=== PATIENT | male | born 1995 | race Caucasian/White ===

== ENCOUNTER 2022-01-13 21:47 | Inpatient (IN) | payer BC, SELFPAY ==
[2022-01-13 22:08] VITALS: BP 145/83; PULSE 114; RESP 18; TEMP 36.2; O2SAT 97; BMI 31.1
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
--- NOTE | 2022-01-13 22:29 | ECG_ITS ---
Test Reason : med clear Blood Pressure : / mmHG Vent. Rate : 084 BPM Atrial Rate : 084 BPM P-R Int : 160 ms QRS Dur : 086 ms QT Int : 362 ms P-R-T Axes : 045 015 037 degrees QTc Int : 427 ms Normal sinus rhythm Normal ECG No previous ECGs available Referred By: Sapna Barrett Electronically Signed By:SHANKAR CATHERINE MD
[2022-01-13 23:05] LABS: MANUAL DIFF FLAG NO
[2022-01-13 23:08] LABS: Basophils Absolute Auto 0.1 X10*3/uL (0.0-0.2); Basophils Percent Auto 0.4 % (0-2); Eosinophils Absolute Auto 0.1 X10*3/uL (0.0-0.4); Eosinophils Percent Auto 0.6 % (0-4); Hematocrit 40.1 % (42.0-52.0); Hemoglobin 14.5 g/dl (14.0-18.0); Imm Gran Abs Auto 0.04 X10*3/uL (0.00-0.03); Imm Gran Pct Auto 0.4 % (0.0-0.4); Lymphocytes Absolute Auto 3.5 X10*3/uL (1.2-4.9); Mean Corpuscular HGB Conc 36.2 g/dl (31.0-36.0); Mean Corpuscular Volume 88.5 fL (80.0-98.0); Mean Platelet Volume 9.2 fL (9.4-12.4); Monocytes Absolute Auto 0.7 X10*3/uL (0.1-1.2); Monocytes Percent Auto 5.8 % (2-11); Neutrophils Percent Auto 61.8 % (45-73); Platelet Count 307 X10*3/uL (160-400); Red Blood Count 4.53 X10*6/uL (4.60-5.80); Red Cell Distribution Width 11.6 % (11.0-16.0); White Blood Count 11.3 X10*3/uL (4.8-10.8)
[2022-01-13 23:09] LABS: Appearance Urine CLEAR; Color Urine YELLOW; Glucose Urine UA NEG (NEG); Leukocyte Esterase Urine NEG (NEG); Nitrite Urine NEG (NEG); Specific Gravity - Urine >= 1.030 (1.005-1.025); Urine Blood TRACE (NEG); Urine Ketones NEG (NEG); Urine Protein NEG (NEG-TRACE)
[2022-01-13 23:21] LABS: Alanine Aminotransferase 26 U/L (0-40); Albumin Level 4.3 g/dL (3.5-5.0); Alkaline Phosphatase 72 U/L (39-117); Anion Gap 11 (12-20); Aspartate Amino Transferase 15 U/L (5-37); Bilirubin Direct 0.2 mg/dL (0.0-0.5); Bilirubin Total 0.5 mg/dL (0.0-1.0); Blood Urea Nitrogen 10 mg/dL (9-16); Calcium 9.6 mg/dL (8.4-10.2); Carbon Dioxide 26 mmol/L (22-29); Chloride 106 mmol/L (96-108); Estimated Glomerular Filt Rate > 60; Glucose Random 99 mg/dL (60-115); Lipase 11 U/L (8-78); Potassium 4.1 mmol/L (3.3-5.1); Sodium 139 mmol/L (135-145); Total Protein 7.3 g/dL (6.5-8.0)
[2022-01-13 23:22] LABS: Bacteria Urine TRACE /LPF; RBC Urine 0-2 /HPF (0); Squamous Epithelial Cell Urine 1+ /LPF; WBC Urine 0-2 /HPF (0-4)
[2022-01-13 23:24] LABS: Amphetamine Screen Urine Not Detected (Not Detect); Barbiturates, Urine Not Detected (Not Detect); Benzodiazepines Screen Urine Not Detected (Not Detect); Cannabinoid Screen Urine POSITIVE (Not Detect); Cocaine Screen Urine Not Detected (Not Detect); Fentanyl, urine Not Detected (Not Detect); Opiate Screen Urine Not Detected (Not Detect); Phencyclidine Screen Urine Not Detected (Not Detect)
[2022-01-13 23:39] LABS: COVID-19 Test Negative (Negative)
[2022-01-13 23:58] VITALS: BP 109/61; PULSE 81; RESP 16; TEMP 36.7; O2SAT 97
[2022-01-14 00:07] LABS: Ethanol < 10 mg/dL
[2022-01-14] MEDS: hydrOXYzine HCL 25 MG TABLET PO ×2 (00:36→20:25)
--- NOTE | 2022-01-14 05:59 | PC.NURSE ---
Patient slept through the night, no distress observed/reported, behavior calm and quiet, mood depressed, medication compliant, disposition per care team voluntary bed search, VSS, will continue to monitor,
[2022-01-14 06:00] VITALS: BP 107/63; PULSE 93; RESP 18; TEMP 36.3; O2SAT 95
--- NOTE | 2022-01-14 07:13 | PC.NURSE ---
patient appears to remain asleep at present respirations are even and unlabored, patient appears in no distress
[2022-01-14] MEDS: Venlafaxine HCl ER 37.5 MG CAP.ER.24H PO (10:15)
[2022-01-14] MEDS: Venlafaxine HCl ER 150 MG CAP.ER.24H PO (10:15)
--- NOTE | 2022-01-14 17:08 | PC.ADMIT ---
PT admitted to unit from [facility] [place] [facility] ED on a conditional voluntary with a diagnosis of major depressive disorder and social anxiety disorder. PT is a transgender male-female, uses she/her pronouns. She reports that she came to the hospital because she was having thoughts of self-harm, she reports that she wanted to and is having thoughts of but has no plan or intention of acting on those thoughts. She reports that she has had sleep disturbances, poor appetite and poor self-care as her depression has increased. Pt was calm and cooperative during admission, soft spoken and avoided eye contact. Pt denies SI at this time and is help seeking. She reports that she has been trying to get a psychiatrist but has been unable. PT reports a history of self-injurious behavior by rubbing her knuckles on hard surfaces until they bled. This is pt's first inpatient experience. Her tox screen was positive for THC, she reports that she uses marijuana to help her sleep. Pt denies other substances and alcohol use. PT is covid negative. 15 minute checks iniated for safety.
[2022-01-14 17:41] VITALS: BMI 31.8
[2022-01-14 17:43] VITALS: BP 107/63; PULSE 93; RESP 18; TEMP 36.3; O2SAT 95
[2022-01-14 19:50] VITALS: BP 98/53; PULSE 94; RESP 18; TEMP 36.5; O2SAT 97
[2022-01-15 07:00] VITALS: BMI 31.9
[2022-01-15 09:00] VITALS: BP 113/68; PULSE 86; RESP 18; TEMP 36.2; O2SAT 94
[2022-01-15 09:04] LABS: Estimated Average Glucose 88 mg/dL; Hemoglobin A1c % 4.7 %
[2022-01-15] MEDS: Venlafaxine HCl ER 150 MG CAP.ER.24H PO (09:16)
[2022-01-15] MEDS: Venlafaxine HCl ER 37.5 MG CAP.ER.24H PO (09:16)
[2022-01-15 10:20] LABS: Alanine Aminotransferase 21 U/L (0-40); Alkaline Phosphatase 68 U/L (39-117); Anion Gap 11 (12-20); Aspartate Amino Transferase 16 U/L (5-37); Bilirubin Total 0.7 mg/dL (0.0-1.0); Blood Urea Nitrogen 14 mg/dL (9-16); Carbon Dioxide 27 mmol/L (22-29); Chloride 104 mmol/L (96-108); Cholesterol 161 mg/dL; Creatinine Clr Calc Pharmacy 186.6; Estimated Glomerular Filt Rate > 60; Glucose Fasting 90 mg/dL (60-99); HDL Cholesterol 31 mg/dL; LDL Cholesterol Calculated 89 mg/dl; Potassium 4.4 mmol/L (3.3-5.1); Sodium 138 mmol/L (135-145); Total Protein 6.6 g/dL (6.5-8.0); Triglycerides 207 mg/dL
[2022-01-15 10:24] LABS: Thyroid Stimulating Hormone 1.21 uIU/mL (0.32-4.0)
[2022-01-15 10:39] LABS: Folate 6.2 ng/mL (> or = 4.0); Vitamin B12 1001 pg/mL (200-900)
--- NOTE | 2022-01-15 14:38 | PC.NURSE ---
Patient tearful after visiting w/ father and mother. Reports feeling 'useless,' and that she doesn't feel anyone fully understands her situation. Patient declined offer of hydroxyzine for anxiety. Encouraged patient not to isolate herself in her room- patient reports being very afraid of rejection and of how other people perceive her.
--- NOTE | 2022-01-15 14:56 | P.HPPS_ITS ---
HPI Date of Service: 01/15/22 Chief Complaint: SI HPI Narrative: pt reports that one month ago she violated her sister's trust by telling her mother something her sister had said while pt and her other were arguing. she reports that she and her mother have since made amends, but her sister has not forgiven her. complicating the situation, her sister is getting this weekend. she has only been transitioning (male to female) for the past month or so and this would be her first major social event as a woman. she is very concerned about how she will be received. pt has been feeling self-conscious due to her living with he rmother at age 26 and not being employed. she rec ently applied for a job and did not get the position, which she feels overly crushed her sense of self-esteem. 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 she does agree with the therapist's assessment, however. she described chronic feelings of inadequacy, ruminativeness. one night recently her mother told her she needed to do her laundry and shower, after which she got very upset. she disclosed feelings of wanting to harm herself and her mother brought her to the ED. on interview with MD, pt reviews the above Hx, which is c/w CARE team eval. pt is agreeable to increase her effexor XR from 187.5 mg daily to 225 mg daily. pt is not sure how we can help her in the hospital. on being asked the three most important issues she would like to change, as targets for us to work on, she identified her tendency to not do things merely because she is unfamiliar with them, her tendency to self-isolate, and her ambivalence about making changes in her life. she was informed that those sorts of goals are best addressed in the outpatient treatment setting. she did identify insomnia as a problem and was educated re the use of trazodone for sleep. pt interested in a new therapist, informed referral can be made at discharge. encouraged to attend groups to learn coping skills and relaxation exercises such as meditation. Past Psychiatric History: h/o SIB of scraping knuckles along cement perla while in HS; no such behavior for years. no h/o SA. no h/o psychiatric hospitalization. individual therapy since 18 yo, PHP several years ago. Medical Evaluation Reviewed: Yes [facility], [facility] Family History: i don't know Social History: parents , has one older sister. unemployed, living with mother. severely bullied during childhood. Substance History: cannabis only Trauma History: denies Diagnostics Vital Signs (24Hr): Vital Signs - 24 hr 01/14/22 17:43 01/14/22 19:50 01/15/22 09:00 Temperature 97.4 F 97.7 F 97.1 F Pulse Rate 93 94 86 Respiratory Rate 18 18 18 Blood Pressure 107/63 98/53 L 113/68 Pulse Oximetry 95 97 94 BMI result Body Mass Index 31.8 Labs Results: 01/13/22 22:57 01/15/22 08:18 Labs: Laboratory Results - last 48 hr 01/13/22 01/13/22 01/13/22 22:53 22:53 22:57 WBC RBC Hgb Hct MCV MCH MCHC RDW Plt Count MPV Immature Gran % (Auto) Neut % (Auto) Lymph % (Auto) [place] % (Auto) Eos % (Auto) Baso % (Auto) Lymph # (Auto) [place] # (Auto) Eos # (Auto) Baso # (Auto) Abs Immat Gran (auto) Absolute Neuts (auto) Absolute Nucleated RBC Nucleated RBC % (auto) Sodium Potassium Chloride Carbon Dioxide Anion Gap BUN Creatinine Estim Creat Clear Calc Estimated GFR Random Glucose Fasting Glucose Estimat Average Glucose Hemoglobin A1c % Calcium Total Bilirubin Direct Bilirubin AST ALT Alkaline Phosphatase Total Protein Albumin Triglycerides Cholesterol LDL Cholesterol, Calc HDL Cholesterol Lipase Vitamin B12 Folate TSH Free T4 Urine Color YELLOW Urine Appearance CLEAR Urine pH 6.0 Ur Specific [place] >= 1.030 H Urine Protein NEG Urine Glucose (UA) NEG Urine Ketones NEG Urine Blood TRACE Urine Nitrite NEG Ur Leukocyte Esterase NEG Urine RBC 0-2 Urine WBC 0-2 Ur Squamous Epith Cells 1+ Urine Bacteria TRACE Urine Opiates Screen Not Detected Urine Fentanyl Screen Not Detected Ur Barbiturates Screen Not Detected Ur Phencyclidine Scrn Not Detected Ur Amphetamines Screen Not Detected U Benzodiazepines Scrn Not Detected Urine Cocaine Screen Not Detected U Marijuana (THC) Screen POSITIVE H Ethyl Alcohol COVID-19 (AVI) Negative COVID-19 Clin Com See Note 01/13/22 01/13/22 01/13/22 22:57 22:57 22:57 WBC 11.3 H RBC 4.53 L Hgb 14.5 Hct 40.1 L MCV 88.5 MCH 32.0 MCHC 36.2 H RDW 11.6 Plt Count 307 MPV 9.2 L Immature Gran % (Auto) 0.4 Neut % (Auto) 61.8 Lymph % (Auto) 31.0 [place] % (Auto) 5.8 Eos % (Auto) 0.6 Baso % (Auto) 0.4 Lymph # (Auto) 3.5 [place] # (Auto) 0.7 Eos # (Auto) 0.1 Baso # (Auto) 0.1 Abs Immat Gran (auto) 0.04 H Absolute Neuts (auto) 7.0 Absolute Nucleated RBC 0.000 Nucleated RBC % (auto) 0.0 Sodium 139 Potassium 4.1 Chloride 106 Carbon Dioxide 26 Anion Gap 11 L BUN 10 Creatinine 0.79 Estim Creat Clear Calc 180.0 Estimated GFR > 60 Random Glucose 99 Fasting Glucose Estimat Average Glucose Hemoglobin A1c % Calcium 9.6 Total Bilirubin 0.5 Direct Bilirubin 0.2 AST 15 ALT 26 Alkaline Phosphatase 72 Total Protein 7.3 Albumin 4.3 Triglycerides Cholesterol LDL Cholesterol, Calc HDL Cholesterol Lipase 11 Vitamin B12 Folate TSH Free T4 Urine Color Urine Appearance Urine pH Ur Specific [place] Urine Protein Urine Glucose (UA) Urine Ketones Urine Blood Urine Nitrite Ur Leukocyte Esterase Urine RBC Urine WBC Ur Squamous Epith Cells Urine Bacteria Urine Opiates Screen Urine Fentanyl Screen Ur Barbiturates Screen Ur Phencyclidine Scrn Ur Amphetamines Screen U Benzodiazepines Scrn Urine Cocaine Screen U Marijuana (THC) Screen Ethyl Alcohol < 10 COVID-19 (AVI) COVID-19 Clin Com 01/15/22 01/15/22 01/15/22 08:18 08:18 08:18 WBC RBC Hgb Hct MCV MCH MCHC RDW Plt Count MPV Immature Gran % (Auto) Neut % (Auto) Lymph % (Auto) [place] % (Auto) Eos % (Auto) Baso % (Auto) Lymph # (Auto) [place] # (Auto) Eos # (Auto) Baso # (Auto) Abs Immat Gran (auto) Absolute Neuts (auto) Absolute Nucleated RBC Nucleated RBC % (auto) Sodium 138 Potassium 4.4 Chloride 104 Carbon Dioxide 27 Anion Gap 11 L BUN 14 Creatinine 0.77 Estim Creat Clear Calc 186.6 Estimated GFR > 60 Random Glucose Fasting Glucose 90 Estimat Average Glucose 88 Hemoglobin A1c % 4.7 Calcium 9.0 D Total Bilirubin 0.7 Direct Bilirubin AST 16 ALT 21 Alkaline Phosphatase 68 Total Protein 6.6 Albumin 4.0 Triglycerides 207 Cholesterol 161 LDL Cholesterol, Calc 89 HDL Cholesterol 31 Lipase Vitamin B12 1001 H Folate 6.2 TSH 1.21 Free T4 0.90 Urine Color Urine Appearance Urine pH Ur Specific [place] Urine Protein Urine Glucose (UA) Urine Ketones Urine Blood Urine Nitrite Ur Leukocyte Esterase Urine RBC Urine WBC Ur Squamous Epith Cells Urine Bacteria Urine Opiates Screen Urine Fentanyl Screen Ur Barbiturates Screen Ur Phencyclidine Scrn Ur Amphetamines Screen U Benzodiazepines Scrn Urine Cocaine Screen U Marijuana (THC) Screen Ethyl Alcohol COVID-19 (AVI) COVID-19 Clin Com Meds/Allergies Meds Home Medications Acetaminophen (Acetaminophen 325 Mg Tablet) 650 mg PO Q6H PRN PRN Reason: Headache/Pain Mild Scale (1-3) Al Hydroxide/Mg Hydroxide (Magnesium Hydrox/Alum Hydrox 30 Ml Oral.Susp) 30 ml PO Q6H PRN PRN Reason: Heartburn/Nausea Hydroxyzine HCl (Hydroxyzine Hcl 25 Mg Tablet) 25 mg PO BEDTIME DENYS Last Admin: 01/14/22 20:25 Dose: 25 mg Documented by: Hydroxyzine HCl (Hydroxyzine Hcl 25 Mg Tablet) 25 mg PO Q4H PRN PRN Reason: Anxiety Magnesium Hydroxide (Milk Of Magnesia 30 Ml Oral.Susp) 30 ml PO DAILY PRN PRN Reason: Constipation Patient Own Med ( Methylphenidate 36 Mg Er) 1 each PO DAILY [facility] Trazodone HCl (Trazodone Hcl 50 Mg Tablet) 50 mg PO BEDTIME PRN PRN Reason: Insomnia Venlafaxine HCl (Venlafaxine Hcl Er 75 Mg Cap.Er.24h) 225 mg PO DAILY [facility] Allergies Allergies Allergy/AdvReac Type Severity Reaction Status Date / Time No Known Allergies Allergy Unverified 07/25/20 18:35 Mental Status Exam Mental Status Exam Narrative: dressed in street clothes, disheveled/unkempt. cooperative with interview. no PMA/PMR. very poor eye contact. speech with affected feminine lilt. nml amount, rate, tone, latency. thoughts linear and logical. affect constricted, tearful at points. mood bad. denies SI/SIBI/HI/AVH. Assessment & Plan Assessment & Plan (1) Depression: Status: Acute Code(s): F32.A - Depression, unspecified Plan increase effexor XR from 187.5 mg daily to 225 mg daily. groups for support and skills. observe for safety. pt interested in a new therapist; referral at discharge. Patient educated on: medication risk/benefits Reason for continued inpatient stay Substantial Risk for: harm to self, inability to function and rapid decompensat ion
[2022-01-15 20:15] VITALS: BP 123/77; PULSE 110; RESP 20; O2SAT 96
[2022-01-15] MEDS: hydrOXYzine HCL 25 MG TABLET PO (20:54)
[2022-01-15] MEDS: traZODone HCL 50 MG TABLET PO (21:03)
[2022-01-16] MEDS: Venlafaxine HCl ER 75 MG CAP.ER.24H 225 MG PO (09:16)
[2022-01-16 09:19] VITALS: BP 94/53; PULSE 82; RESP 18; TEMP 36.4; O2SAT 95
--- NOTE | 2022-01-16 13:08 | HO.PSYCHPN ---
Subjective Subjective Date of Service: 01/16/22 Reason For Visit: SI Interim History: pt found sleeping in her room late morning. rousable to loud voice. states she did not sleep well last night. spoke with her parents yesterday, which she reports only made her feel worse. she feels as if she is letting them down by missing the wedding this weekend. she has been having the thought, if i were a better adult, i wouldn't need to be here. she reports her father brought her a card from her sister. the sister's message was that she was not mad at pt, but she also didn't say i love you to pt or apologize for recent poor interactions. she feels she should just excise her sister from her life at this point. no other complaints or requests. med change reviewed, weekend schedule reviewed. pt informs MD of her plan to discharge wednesday, as that is when her three-day notice matures. no other complaints or requests. per staff, pt tearful and isolative yesterday. trazodone was helpful for sleep last night. depressed and anxious, sad to be missing her sister's wedding this weekend. afraid of going to groups. not attending groups. perseverating on mtg with family. appeared to have slept well last night. Mental Status Exam Mental Status Exam Narrative: dressed in street clothes, disheveled/unkempt. cooperative with interview. no PMA/PMR. no eye contact. speech with affected feminine lilt. nml amount, rate, tone, latency. thoughts linear and logical. affect constricted, normo-intense, non-labile. mood depressed and anxious. no SI/SIBI/HI/AVH expressed. Diagnostics Vital Signs (24Hr): Vital Signs - 24 hr 01/15/22 20:15 01/16/22 09:19 Temperature 97.6 F Pulse Rate 110 H 82 Respiratory Rate 20 18 Blood Pressure 123/77 94/53 L Pulse Oximetry 96 95 BMI result Body Mass Index 31.9 Labs Results: 01/13/22 22:57 01/15/22 08:18 Labs: Laboratory Results - last 48 hr 01/15/22 01/15/22 01/15/22 08:18 08:18 08:18 Sodium 138 Potassium 4.4 Chloride 104 Carbon Dioxide 27 Anion Gap 11 L BUN 14 Creatinine 0.77 Estim Creat Clear Calc 186.6 Estimated GFR > 60 Fasting Glucose 90 Estimat Average Glucose 88 Hemoglobin A1c % 4.7 Calcium 9.0 D Total Bilirubin 0.7 AST 16 ALT 21 Alkaline Phosphatase 68 Total Protein 6.6 Albumin 4.0 Triglycerides 207 Cholesterol 161 LDL Cholesterol, Calc 89 HDL Cholesterol 31 Vitamin B12 1001 H Folate 6.2 TSH 1.21 Free T4 0.90 Medications Medications Current Medications Acetaminophen (Acetaminophen 325 Mg Tablet) 650 mg PO Q6H PRN PRN Reason: Headache/Pain Mild Scale (1-3) Al Hydroxide/Mg Hydroxide (Magnesium Hydrox/Alum Hydrox 30 Ml Oral.Susp) 30 ml PO Q6H PRN PRN Reason: Heartburn/Nausea Hydroxyzine HCl (Hydroxyzine Hcl 25 Mg Tablet) 25 mg PO BEDTIME [facility] Last Admin: 01/15/22 20:54 Dose: 25 mg Documented by: Hydroxyzine HCl (Hydroxyzine Hcl 25 Mg Tablet) 25 mg PO Q4H PRN PRN Reason: Anxiety Magnesium Hydroxide (Milk Of Magnesia 30 Ml Oral.Susp) 30 ml PO DAILY PRN PRN Reason: Constipation Patient Own Med ( Methylphenidate 36 Mg Er) 1 each PO DAILY [facility] Last Admin: 01/16/22 09:16 Dose: 1 each Documented by: Trazodone HCl (Trazodone Hcl 50 Mg Tablet) 50 mg PO BEDTIME PRN PRN Reason: Insomnia Last Admin: 01/15/22 21:03 Dose: 50 mg Documented by: Venlafaxine HCl (Venlafaxine Hcl Er 75 Mg Cap.Er.24h) 225 mg PO DAILY [facility] Last Admin: 01/16/22 09:16 Dose: 225 mg Documented by: Allergies Allergies Allergy/AdvReac Type Severity Reaction Status Date / Time No Known Allergies Allergy Unverified 07/25/20 18:35 Assessment & Plan Assessment & Plan (1) Depression: Status: Acute Code(s): F32.A - Depression, unspecified Plan increased effexor XR from 187.5 mg daily to 225 mg daily. groups for support and skills. observe for safety. pt interested in a new therapist; referral at discharge. planning for wednesday DC. I spent ___25___ minutes with the patient and/or on the patient floor today, greater than?50% of which was spent counseling/coordinating care. Reason for contiued inpatient stay Substantial Risk for: harm to self, inability to function and rapid decompensation
[2022-01-16] MEDS: traZODone HCL 50 MG TABLET PO (21:56)
[2022-01-16] MEDS: hydrOXYzine HCL 25 MG TABLET PO (21:57)
[2022-01-16 21:59] VITALS: BP 107/73; PULSE 105; TEMP 36.3; O2SAT 98
[2022-01-17] MEDS: Venlafaxine HCl ER 75 MG CAP.ER.24H 225 MG PO (09:24)
[2022-01-17 09:40] VITALS: BP 91/50; PULSE 85; RESP 18; TEMP 36.1; O2SAT 96
--- NOTE | 2022-01-17 09:50 | P.PNPSI_ITS ---
Subjective Subjective Date of Service: 01/17/22 Reason For Visit: SI Subjective Notes: 3 Day Medical Problems Affecting Mental Status: No Interim History: pt sitting in common room, easily engaged, soft spoken, states she still not sleeping well, Pt reports sad, no other complaints or requests. Would like to discharge Wednesday. Feels she can work through issues with therapist. says she needs an outpatient psychiatrist for evaluation of personality disorder. med change reviewed, weekend schedule reviewed. not attending groups. Medication Compliance: Yes Side effects from medications: No Attending Groups: No Review of Systems Acute medical concerns: No Review of Systems Review of Systems Constitutional: No Fever, No Chills ENT/Mouth: No Ear Pain, No Nasal Congestion, No sore throat Eyes: No Eye Pain, No Swelling, No Redness Cardiovascular: No Chest Pain, No SOB Respiratory: No Cough, No Sputum, No Dyspnea Gastrointestinal: No Nausea, No Vomiting, No Diarrhea, No Hematochezia, No Melena Genitourinary: No Dysuria, No Urinary Frequency, No Hematuria Musculoskeletal: No Myalgias Skin: No Skin Lesions, No rash Neuro: No Weakness, No Numbness, No Paresthesias, No Dizziness, No Headache Psych: positive Anxiety, positive Depression, positive SI Heme/Lymph: No Lymphadenopathy Endocrine: No Polyuria, No Polydipsia Yes all other systems are reviewed and are negative Mental Status Exam Mental Status Exam Narrative: dressed in street clothes, disheveled/unkempt. cooperative with interview. no eye contact. speech with affected feminine lilt. nml amount, rate, tone, latency. thoughts linear and logical. affect constricted, normo-intense, non- labile. mood sad and anxious. no SI/SIBI/HI/AVH expressed. Diagnostics Vital Signs (24Hr): Vital Signs - 24 hr 01/16/22 21:59 01/17/22 09:40 Temperature 97.3 F 97 F Pulse Rate 105 H 85 Respiratory Rate 18 Blood Pressure 107/73 91/50 L Pulse Oximetry 98 96 BMI result Body Mass Index 31.9 Labs Results: 01/13/22 22:57 01/15/22 08:18 Labs: Laboratory Results - last 48 hr 01/15/22 01/15/22 08:18 08:18 Sodium 138 Potassium 4.4 Chloride 104 Carbon Dioxide 27 Anion Gap 11 L BUN 14 Creatinine 0.77 Estim Creat Clear Calc 186.6 Estimated GFR > 60 Fasting Glucose 90 Calcium 9.0 D Total Bilirubin 0.7 AST 16 ALT 21 Alkaline Phosphatase 68 Total Protein 6.6 Albumin 4.0 Triglycerides 207 Cholesterol 161 LDL Cholesterol, Calc 89 HDL Cholesterol 31 Vitamin B12 1001 H Folate 6.2 TSH 1.21 Free T4 0.90 Medications Medications Current Medications Acetaminophen (Acetaminophen 325 Mg Tablet) 650 mg PO Q6H PRN PRN Reason: Headache/Pain Mild Scale (1-3) Al Hydroxide/Mg Hydroxide (Magnesium Hydrox/Alum Hydrox 30 Ml Oral.Susp) 30 ml PO Q6H PRN PRN Reason: Heartburn/Nausea Hydroxyzine HCl (Hydroxyzine Hcl 25 Mg Tablet) 25 mg PO BEDTIME [facility] Last Admin: 01/16/22 21:57 Dose: 25 mg Documented by: Hydroxyzine HCl (Hydroxyzine Hcl 25 Mg Tablet) 25 mg PO Q4H PRN PRN Reason: Anxiety Magnesium Hydroxide (Milk Of Magnesia 30 Ml Oral.Susp) 30 ml PO DAILY PRN PRN Reason: Constipation Patient Own Med ( Methylphenidate 36 Mg Er) 1 each PO DAILY [facility] Last Admin: 01/17/22 09:24 Dose: 1 each Documented by: Trazodone HCl (Trazodone Hcl 50 Mg Tablet) 50 mg PO BEDTIME PRN PRN Reason: Insomnia Last Admin: 01/16/22 21:56 Dose: 50 mg Documented by: Venlafaxine HCl (Venlafaxine Hcl Er 75 Mg Cap.Er.24h) 225 mg PO DAILY [facility] Last Admin: 01/17/22 09:24 Dose: 225 mg Documented by: Allergies Allergies Allergy/AdvReac Type Severity Reaction Status Date / Time No Known Allergies Allergy Unverified 07/25/20 18:35 Assessment & Plan Assessment & Plan (1) Depression: Status: Acute Code(s): F32.A - Depression, unspecified Plan increased effexor XR from 187.5 mg daily to 225 mg daily. groups for support and skills. observe for safety. pt interested in a new therapist; referral at discharge. planning for wednesday DC. I spent ___15___ minutes with the patient and/or on the patient floor today, greater than?50% of which was spent counseling/coordinating care. Patient educated on: diagnosis, medication risk/benefits and therapeutic strategies Informed Consent: further education needed Reason for contiued inpatient stay Substantial Risk for: harm to self and inability to function
[2022-01-17 21:02] VITALS: BP 118/65; PULSE 106; TEMP 36.6; O2SAT 96
[2022-01-17] MEDS: hydrOXYzine HCL 25 MG TABLET PO (21:05)
[2022-01-17] MEDS: traZODone HCL 50 MG TABLET PO (21:05)
[2022-01-18 06:00] VITALS: BP 93/57; PULSE 82; RESP 16; TEMP 36.6; O2SAT 96
[2022-01-18] MEDS: Venlafaxine HCl ER 75 MG CAP.ER.24H 225 MG PO (08:52)
--- NOTE | 2022-01-18 10:45 | P.PNPSI_ITS ---
Subjective Subjective Date of Service: 01/18/22 Reason For Visit: SI Subjective Notes: 3 Day Interim History: pt presenting depressed, not attending to ADLs. low energy, sad, no SI or HI Medication Compliance: Yes Side effects from medications: No Attending Groups: No Review of Systems Acute medical concerns: No Medical Review of Systems: unchanged Review of Systems Review of Systems Constitutional: No Fever, No Chills ENT/Mouth: No Ear Pain, No Nasal Congestion, No sore throat Eyes: No Eye Pain, No Swelling, No Redness Cardiovascular: No Chest Pain, No SOB Respiratory: No Cough, No Sputum, No Dyspnea Gastrointestinal: No Nausea, No Vomiting, No Diarrhea, No Hematochezia, No Melena Genitourinary: No Dysuria, No Urinary Frequency, No Hematuria Musculoskeletal: No Myalgias Skin: No Skin Lesions, No rash Neuro: No Weakness, No Numbness, No Paresthesias, No Dizziness, No Headache Psych: positive Anxiety, positive Depression, positive SI Heme/Lymph: No Lymphadenopathy Endocrine: No Polyuria, No Polydipsia Yes all other systems are reviewed and are negative Mental Status Exam Mental Status Exam Narrative: dressed in street clothes, disheveled/unkempt. cooperative with interview. no eye contact. speech nml amount, rate, tone, latency. thoughts linear and logical. affect constricted, normo-intense, non-labile. mood sad and anxious. no SI/SIBI/HI/AVH expressed. Judgement and Insight: fair Diagnostics Vital Signs (24Hr): Vital Signs - 24 hr 01/17/22 21:02 01/18/22 06:00 Temperature 97.8 F 97.8 F Pulse Rate 106 H 82 Respiratory Rate 16 Blood Pressure 118/65 93/57 L Pulse Oximetry 96 96 BMI result Body Mass Index 31.9 Labs Results: 01/13/22 22:57 01/15/22 08:18 Medications Medications Current Medications Acetaminophen (Acetaminophen 325 Mg Tablet) 650 mg PO Q6H PRN PRN Reason: Headache/Pain Mild Scale (1-3) Al Hydroxide/Mg Hydroxide (Magnesium Hydrox/Alum Hydrox 30 Ml Oral.Susp) 30 ml PO Q6H PRN PRN Reason: Heartburn/Nausea Hydroxyzine HCl (Hydroxyzine Hcl 25 Mg Tablet) 25 mg PO BEDTIME DENYS Last Admin: 01/17/22 21:05 Dose: 25 mg Documented by: Hydroxyzine HCl (Hydroxyzine Hcl 25 Mg Tablet) 25 mg PO Q4H PRN PRN Reason: Anxiety Magnesium Hydroxide (Milk Of Magnesia 30 Ml Oral.Susp) 30 ml PO DAILY PRN PRN Reason: Constipation Patient Own Med ( Methylphenidate 36 Mg Er) 1 each PO DAILY [facility] Last Admin: 01/18/22 10:30 Dose: 1 each Documented by: Trazodone HCl (Trazodone Hcl 50 Mg Tablet) 50 mg PO BEDTIME PRN PRN Reason: Insomnia Last Admin: 01/17/22 21:05 Dose: 50 mg Documented by: Venlafaxine HCl (Venlafaxine Hcl Er 75 Mg Cap.Er.24h) 225 mg PO DAILY [facility] Last Admin: 01/18/22 08:52 Dose: 225 mg Documented by: Allergies Allergies Allergy/AdvReac Type Severity Reaction Status Date / Time No Known Allergies Allergy Unverified 07/25/20 18:35 Assessment & Plan Assessment & Plan (1) Depression: Status: Acute Code(s): F32.A - Depression, unspecified Plan continue effexor XR 225 mg daily. groups for support and skills. observe for safety. pt interested in a new therapist; referral at discharge. planning for wednesday DC. I spent ___15___ minutes with the patient and/or on the patient floor today, greater than?50% of which was spent counseling/coordinating care. Patient educated on: medication risk/benefits and therapeutic strategies Informed Consent: understands and further education needed Reason for contiued inpatient stay Substantial Risk for: harm to self, inability to function and rapid decompensation
[2022-01-18 18:00] VITALS: BP 126/64; PULSE 108; RESP 18; TEMP 36.3; O2SAT 96
[2022-01-18] MEDS: hydrOXYzine HCL 25 MG TABLET PO (21:08)
[2022-01-18] MEDS: traZODone HCL 50 MG TABLET PO (21:09)
[2022-01-19] MEDS: Venlafaxine HCl ER 75 MG CAP.ER.24H 225 MG PO (09:49)
[2022-01-19 10:00] VITALS: BP 129/76; PULSE 91; RESP 14; TEMP 35.8; O2SAT 99
--- NOTE | 2022-01-19 13:26 | P.PNPSI_ITS ---
Subjective Subjective Date of Service: 01/19/22 Reason For Visit: SI Interim History: pt found in her room resting on her bed in the dark late morning. recounts her weekend, which she reports was good aside from a difficult conversation she had with her mother yesterday. she feels her mother is unable to hear her. she was informed of the planned discharge for tomorrow, to which she expressed upset and surprise, thinking she would be leaving today. she believes that having signed the 3-day notice is somehow keeping her in the hospital longer than if she hadn't signed it. as MD attempted to understand her logic, she became frustrated and said she wished to end the interview. she did not respond to brief attempt by MD to wrap up loose ends, so MD left the room as pt sat on the edge of her bed with head down. per staff, 3-day up 01/21. slept 8 hours. brighter on days yesterday. dep 5, anx 3. she reports she feels at her baseline emotionally. denies SI/HI/AVH. attending all groups. visited with mother yesterday, upset afterward. Mental Status Exam Mental Status Exam Narrative: dressed in street clothes, disheveled/unkempt. cooperative with interview. no PMA/PMR. little eye contact. speech with affected feminine lilt. nml amount, rate, tone, latency. thoughts linear. affect constricted, normo-intense, non- labile. mood depressed and anxious. no SI/SIBI/HI/AVH expressed. Diagnostics Vital Signs (24Hr): Vital Signs - 24 hr 01/18/22 18:00 01/19/22 10:00 Temperature 97.3 F 96.5 F L Pulse Rate 108 H 91 Respiratory Rate 18 14 Blood Pressure 126/64 129/76 Pulse Oximetry 96 99 BMI result Body Mass Index 31.9 Labs Results: 01/13/22 22:57 01/15/22 08:18 Medications Medications Current Medications Acetaminophen (Acetaminophen 325 Mg Tablet) 650 mg PO Q6H PRN PRN Reason: Headache/Pain Mild Scale (1-3) Al Hydroxide/Mg Hydroxide (Magnesium Hydrox/Alum Hydrox 30 Ml Oral.Susp) 30 ml PO Q6H PRN PRN Reason: Heartburn/Nausea Hydroxyzine HCl (Hydroxyzine Hcl 25 Mg Tablet) 25 mg PO BEDTIME DENYS Last Admin: 01/18/22 21:08 Dose: 25 mg Documented by: Hydroxyzine HCl (Hydroxyzine Hcl 25 Mg Tablet) 25 mg PO Q4H PRN PRN Reason: Anxiety Magnesium Hydroxide (Milk Of Magnesia 30 Ml Oral.Susp) 30 ml PO DAILY PRN PRN Reason: Constipation Patient Own Med ( Methylphenidate 36 Mg Er) 1 each PO DAILY [facility] Last Admin: 01/19/22 09:49 Dose: 1 each Documented by: Trazodone HCl (Trazodone Hcl 50 Mg Tablet) 50 mg PO BEDTIME PRN PRN Reason: Insomnia Last Admin: 01/18/22 21:09 Dose: 50 mg Documented by: Venlafaxine HCl (Venlafaxine Hcl Er 75 Mg Cap.Er.24h) 225 mg PO DAILY [facility] Last Admin: 01/19/22 09:49 Dose: 225 mg Documented by: Allergies Allergies Allergy/AdvReac Type Severity Reaction Status Date / Time No Known Allergies Allergy Unverified 07/25/20 18:35 Assessment & Plan Assessment & Plan (1) Depression: Status: Acute Code(s): F32.A - Depression, unspecified Plan continue effexor XR 225 mg daily. groups for support and skills. observe for safety. pt interested in a new therapist; referral at discharge. planning for wednesday. I spent ___25___ minutes with the patient and/or on the patient floor today, greater than?50% of which was spent counseling/coordinating care. Reason for contiued inpatient stay Substantial Risk for: inability to function and rapid decompensation
[2022-01-19 18:00] VITALS: BP 116/80; PULSE 104; RESP 16; TEMP 36.6; O2SAT 99
[2022-01-19] MEDS: traZODone HCL 50 MG TABLET PO (21:01)
[2022-01-19] MEDS: hydrOXYzine HCL 25 MG TABLET PO (21:01)
[2022-01-20 09:41] VITALS: BP 99/56; PULSE 86; RESP 18; TEMP 36.6; O2SAT 99
[2022-01-20] MEDS: Venlafaxine HCl ER 75 MG CAP.ER.24H 225 MG PO (09:48)
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
--- NOTE | 2022-01-20 13:28 | PC.NURSE ---
Patient alert, oriented x3. Patient reports she is eager for discharge, looking forward to returning home and getting on with her life. Patient affect bright, denies SI/HI, denies AH/VH. Reviewed discharge instructions with patient, no concerns or questions reported. Reviewed valuables given- patient had no questions or concerns.
== END 2022-01-20 13:56 | disposition home or self-care (01) | DRG 754 ==
LOC: HO.ED 01-14 10:32 → HO.PADLT16 01-14 15:38
PROVIDERS: Nurse Practitioner Family; Admitting Provider Psychiatry & Neurology Psychiatry; Emergency Provider Student in an Organized Health Care Education/Training Program; Visit Provider Psychiatry & Neurology Psychiatry
DX: F32.A Depression, unspecified (principal); R45.851 Suicidal ideations; Z91.52 Personal history of nonsuicidal self-harm; F64.0 Transsexualism; Z87.891 Personal history of nicotine dependence; Z79.899 Other long term (current) drug therapy
CPT/HCPCS: 36415; 80048; 80053; 80061; 80076; 80307; 81001; 82077; 82607; 82746; 83036; 83690; 84439; 84443; 85025; 87635; 93005; 99285